=== PATIENT | male | born 1995 | race African-American/Black ===

== ENCOUNTER 2019-06-17 12:04 | Emergency (ER) | payer BC ==
[~2019-06-17] VITALS: Ht 182.9 cm; Wt 68.0 kg
[~2019-06-17 12:04] MED LIST: COLACE100 MG PO; LINZESS145 MCG PO; MACROBID 100 M100 M1 PO; MIRALAX17 GM PO; NORCO 5-325 TA1 EACH PO; ONDANSETRON HCL4 M2 PO; PEPCID20 MG PO; PRILOSEC 10MG C10 MG PO; ZOFRAN ODT4 M1 PO
[2019-06-17 12:52] LABS: ABSOLUTE NEUTROPHILS 7.5 thou/uL (1.4-8.2); BASOPHILS 0.6 % (0.0-2.0); EOSINOPHILS 0.6 % (0.0-3.0); HEMATOCRIT 45.6 % (42.0-52.0); HEMOGLOBIN 15.5 gm/dL (14.0-18.0); MCH 30.5 pg (26.0-34.0); MCHC 34.1 g/dL (28.0-37.0); MCV 89.4 fL (80.0-100.0); MONOCYTES 9.1 % (1.0-8.0); PLATELET COUNT 280 thou/uL (150-400); POLYS 78.7 % (36.0-66.0); RDW 12.6 % (10.5-14.5); WBC 9.6 thou/uL (4.0-11.0)
[2019-06-17 13:02] LABS: CALCIUM 9.2 mg/dL (8.5-10.1); CREATININE 1.3 mg/dL (0.7-1.3); POTASSIUM 4.2 mmol/L (3.5-5.1)
[2019-06-17 13:08] LABS: ALBUMIN 3.8 g/dL (3.4-5.0); TOTAL BILIRUBIN 1.2 mg/dL (<0.1-1.0)
[2019-06-17 14:07] LABS: URINE BILIRUBIN NEGATIVE (Negative); URINE BLOOD NEGATIVE (Negative); URINE CLARITY CLEAR; URINE COLOR YELLOW; URINE GLUCOSE-RANDOM* NEGATIVE (Negative); URINE KETONES TRACE (Negative); URINE LEUKOCYTES-REFLEX NEGATIVE (Negative); URINE NITRITE-REFLEX NEGATIVE (Negative); URINE PROTEIN (DIPSTICK) NEGATIVE (Negative); URINE SPECIFIC GRAVITY <= 1.005 (1.005-1.035); URINE UROBILINOGEN 0.2 E.U./dl (0.2-1.0)
[2019-06-17] MEDS ORDERED: DOXYCYCLINE 10100 MG PO (14:14)
[2019-06-17] MEDS ORDERED: ONDANSETRON HCL4 M2 PO (14:14)
[2019-06-17] MEDS ORDERED: CLARITIN-D 121 EAC1 PO (14:14)
[2019-06-17] MEDS ORDERED: PREDNISONE 20 M20 MG PO (14:14)
[2019-06-17 14:21] VITALS: BP 120/68
== END 2019-06-17 14:27 | disposition home or self-care (01) ==
LOC: ER 12:04
PROVIDERS: Nurse Practitioner Family
DX: J32.9 Chronic sinusitis, unspecified (principal); K59.00 Constipation, unspecified; G89.29 Other chronic pain; R10.10 Upper abdominal pain, unspecified; J45.909 Unspecified asthma, uncomplicated; Z90.49 Acquired absence of other specified parts of digestive tract